=== PATIENT | female | born 1940 | race Caucasian/White ===

== ENCOUNTER → 2023-05-23 | Outpatient (CLI) | payer MEDICARE, OTHER, SELFPAY ==
[2023-05-23 18:08] LABS: T3 Total - Triiodothyronine 1.07 ng/mL (0.6-1.81)
[2023-05-23 18:22] LABS: Ferritin 160 ng/mL (8-252); T4 Total, Thyroxin 8.9 ug/dL (4.8-13.9)
[2023-05-24 08:49] LABS: PTHIN 101.8 pg/mL (18.4-80.1)
[2023-05-25 08:10] LABS: Thyroid Peroxidase AB < 9 IU/mL (0-34)
== END | disposition home or self-care (01) ==
PROVIDERS: Referring Provider Dermatology Pediatric Dermatology; Visit Provider Dermatology Pediatric Dermatology
DX: L71.8 Other rosacea (principal); L80 Vitiligo
CPT/HCPCS: 36415; 82728; 83970; 84436; 84480; 86376